=== PATIENT | male | born 1955 | race Caucasian/White ===

== ENCOUNTER 2019-04-15 18:27 | Emergency (ER) | payer SELFPAY | END 2019-04-15 18:56 | disposition left against medical advice (07) | LOC: EMS 18:28 | DX: R21 Rash and other nonspecific skin eruption (principal); Z53.21 Procedure and treatment not carried out due to patient leaving prior to being seen by health care provider ==

== ENCOUNTER 2021-04-10 12:58 | Emergency (ER) | payer SELFPAY ==
[~2021-04-10] VITALS: Ht 177.8 cm; Wt 77.3 kg
[2021-04-10 13:06] VITALS: BP 138/99
== END 2021-04-10 14:15 | disposition left against medical advice (07) ==
LOC: EMS 12:59
DX: R06.02 Shortness of breath (principal); Z53.21 Procedure and treatment not carried out due to patient leaving prior to being seen by health care provider

== ENCOUNTER 2021-04-15 12:39 | Emergency (ER) | payer MEDICAID ==
[~2021-04-15] VITALS: Ht 162.6 cm; Wt 68.0 kg
[2021-04-15 14:23] LABS: EOSINOPHILS % (AUTO) 0.1 % (1.0-6.0); HEMOGLOBIN 13.4 g/dL (13.5-17.5); LYMPHOCYTES # (AUTO) 0.5 K/uL (1.0-4.8); MEAN CORPUSCULAR HEMOGLOBIN 29.9 pg (26.0-34.0); NEUTROPHILS # (AUTO) 8.7 K/uL (1.8-7.7)
[2021-04-15 14:26] LABS: BASOPHILS % (AUTO) 0.5 % (0.0-2.0); HEMATOCRIT 40.7 % (41-53); LYMPHOCYTES % (AUTO) 4.5 % (22.0-44.0); MEAN CORPUSCULAR VOLUME 91 fL (80-100); MONOCYTES % (AUTO) 9.6 % (2.0-9.0); RED BLOOD CELL COUNT(AUTO) 4.48 MIL/uL (4.50-5.90); RED CELL DISTRIBUTION WIDTH 14.6 % (11.5-14.5)
[2021-04-15 14:27] LABS: ANION GAP 11 mmol/L (8-16); CALCIUM, TOTAL 8.2 mg/dL (8.8-10.5); CARBON DIOXIDE 25 mmol/L (22-29); CHLORIDE 107 mmol/L (98-107); CREATININE 0.98 mg/dL (0.60-1.30); GLOMERULAR FILTR. RATE CALC > 60 mL/min (>60); GLUCOSE,RANDOM 119 mg/dL (70-110); SODIUM SERUM 143 mmol/L (136-145); UREA NITROGEN, BLOOD 23 mg/dL (7-18)
[2021-04-15 14:28] LABS: NEUTROPHILS % (AUTO) 85.3 % (40.0-70.0)
[2021-04-15 14:33] LABS: ALANINE AMINOTRANSFERASE 40 U/L (12-78); ALBUMIN 2.5 g/dL (3.4-5.0); ALKALINE PHOSPHATASE 137 U/L (46-116); ASPARTATE AMINOTRANSFERASE 62 U/L (15-37); BILIRUBIN,TOTAL 0.6 mg/dL (0.1-1.0)
[2021-04-15 14:41] LABS: PLATELET COUNT (AUTO) 107 K/uL (150-450); PLATELET MORPHOLOGY COMMENT GIANT PLTS PRESENT
[2021-04-15 15:58] VITALS: BP 131/81
== END 2021-04-15 16:17 | disposition home or self-care (01) ==
LOC: EMS 12:39
DX: R06.00 Dyspnea, unspecified (principal); F17.210 Nicotine dependence, cigarettes, uncomplicated; F15.90 Other stimulant use, unspecified, uncomplicated; Z20.822 Contact with and (suspected) exposure to COVID-19
CPT/HCPCS: 36415; 71045; 80053; 85025; 93005; 99285; U0003

== ENCOUNTER 2021-04-25 17:10 | Inpatient (IN) | payer MEDICAID ==
[~2021-04-25] VITALS: Ht 180.3 cm; Wt 72.8 kg
[2021-04-25] MEDS ORDERED: ALBUTEROL SULFATE HFA 90 MCG/PUFF 8 GM INHALER IH ONE (18:45)
[2021-04-25] MEDS ORDERED: SODIUM CHLORIDE 0.9% 1,000 ML IV ONE (18:45)
[2021-04-25 19:04] LABS: BASOPHILS % (AUTO) 0.8 % (0.0-2.0); EOSINOPHILS % (AUTO) 0.4 % (1.0-6.0); HEMATOCRIT 39.5 % (41-53); LYMPHOCYTES % (AUTO) 10.3 % (22.0-44.0); MEAN CORPUSCULAR HGB CONC 32.9 G/dL (31.0-37.0); MEAN CORPUSCULAR VOLUME 91 fL (80-100); MONOCYTES # (AUTO) 0.8 K/uL (0.1-1.0); MONOCYTES % (AUTO) 8.1 % (2.0-9.0); NEUTROPHILS # (AUTO) 7.6 K/uL (1.8-7.7); NEUTROPHILS % (AUTO) 80.4 % (40.0-70.0); PLATELET COUNT (AUTO) 217 K/uL (150-450); RED BLOOD CELL COUNT(AUTO) 4.33 MIL/uL (4.50-5.90); RED CELL DISTRIBUTION WIDTH 15.2 % (11.5-14.5)
[2021-04-25 19:14] LABS: ANION GAP 7 mmol/L (8-16); CALCIUM, TOTAL 8.8 mg/dL (8.8-10.5); CARBON DIOXIDE 29 mmol/L (22-29); CHLORIDE 109 mmol/L (98-107); CREATININE 1.12 mg/dL (0.60-1.30); GLOMERULAR FILTR. RATE CALC > 60 mL/min (>60); GLUCOSE,RANDOM 106 mg/dL (70-110); POTASSIUM 4.9 mmol/L (3.5-5.1); SODIUM SERUM 145 mmol/L (136-145); UREA NITROGEN, BLOOD 32 mg/dL (7-18)
[2021-04-25 19:38] LABS: ALANINE AMINOTRANSFERASE 96 U/L (12-78); ALKALINE PHOSPHATASE 175 U/L (46-116); ASPARTATE AMINOTRANSFERASE 86 U/L (15-37); BILIRUBIN,TOTAL 0.5 mg/dL (0.1-1.0); CREATINE KINASE, TOTAL ONLY 199 U/L (39-308); TOTAL PROTEIN, SERUM 6.3 g/dL (6.4-8.2)
[2021-04-25 19:39] LABS: COVID AG,FIA SOURCE NASOPHARYNGEAL
[2021-04-25] MEDS ORDERED: CefTRIAXone 1 GM/DEXTROSE 50 ML IV ONE (20:00)
[2021-04-25] MEDS ORDERED: AZITHROMYCIN 500 MG/NS 250 ML IV ONE (20:00)
[2021-04-25 20:40] LABS: B-TYPE NATRIURETIC PEPTIDE 1880 pg/mL (0-100)
[2021-04-25] MEDS ORDERED: ONDANSETRON HCL 4 MG/2 ML VIAL IVP PRN (20:45)
[2021-04-25] MEDS ORDERED: ACETAMINOPHEN 325 MG TABLET PO PRN (20:45)
[2021-04-25] MEDS ORDERED: FUROSEMIDE 20 MG/2 ML VIAL IVP SCH (21:00)
[2021-04-25] MEDS ORDERED: SODIUM CHLORIDE 0.9% 250 ML IV ONE (21:45)
[2021-04-25] MEDS: HEPARIN SODIUM,PORCINE 5,000 UNITS/ML VIAL SQ SCH (22:16)
[2021-04-25 22:33] VITALS: BP 116/91
[2021-04-25] MEDS ORDERED: LORazepam 2 MG/ML VIAL IVP ONE (23:00)
[2021-04-25] MEDS ORDERED: ASPIRIN 81 MG CHEWABLE TABLET PO ONE (23:15)
[2021-04-26 00:47] LABS: PLATELET MORPHOLOGY COMMENT GIANT PLTS PRESENT
[2021-04-26] MEDS ORDERED: PNEUMOCOCCAL VACCINE POLYVALENT 0.5 ML VIAL [PPSV23] IM. ONE (04:30)
[2021-04-26] MEDS ORDERED: INFLUENZA VIRUS VACCINE QVS 2021-22 (6MO+)/PF 60 MCG/0.5 ML SYRINGE IM. ONE (04:30)
[2021-04-26 06:23] VITALS: BP 111/77
[2021-04-26 06:43] LABS: ANION GAP 5 mmol/L (8-16); CALCIUM, TOTAL 8.3 mg/dL (8.8-10.5); CARBON DIOXIDE 27 mmol/L (22-29); CHLORIDE 111 mmol/L (98-107); CREATININE 1.07 mg/dL (0.60-1.30); GLOMERULAR FILTR. RATE CALC > 60 mL/min (>60); GLUCOSE,RANDOM 110 mg/dL (70-110); POTASSIUM 3.9 mmol/L (3.5-5.1); SODIUM SERUM 143 mmol/L (136-145); UREA NITROGEN, BLOOD 29 mg/dL (7-18)
[2021-04-26 07:00] LABS: BASOPHILS % (AUTO) 0.6 % (0.0-2.0); EOSINOPHILS % (AUTO) 0.5 % (1.0-6.0); HEMOGLOBIN 12.8 g/dL (13.5-17.5); LYMPHOCYTES # (AUTO) 1.4 K/uL (1.0-4.8); MEAN CORPUSCULAR HEMOGLOBIN 30.1 pg (26.0-34.0); MEAN CORPUSCULAR HGB CONC 32.8 G/dL (31.0-37.0); MEAN CORPUSCULAR VOLUME 92 fL (80-100); MONOCYTES # (AUTO) 0.8 K/uL (0.1-1.0); MONOCYTES % (AUTO) 9.3 % (2.0-9.0); NEUTROPHILS # (AUTO) 6.1 K/uL (1.8-7.7); NEUTROPHILS % (AUTO) 72.6 % (40.0-70.0); PLATELET COUNT (AUTO) 189 K/uL (150-450); RED BLOOD CELL COUNT(AUTO) 4.25 MIL/uL (4.50-5.90); RED CELL DISTRIBUTION WIDTH 14.6 % (11.5-14.5)
[2021-04-26 07:03] LABS: PLATELET MORPHOLOGY COMMENT GIANT PLTS PRESENT
[2021-04-26 07:36] VITALS: BP 116/77
[2021-04-26] MEDS ORDERED: ASPIRIN 81 MG CHEWABLE TABLET PO SCH (08:00)
[2021-04-26] MEDS: HEPARIN SODIUM,PORCINE 5,000 UNITS/ML VIAL SQ SCH (08:45)
[2021-04-26] MEDS ORDERED: FUROSEMIDE 20 MG/2 ML VIAL IVP SCH (09:00)
== END 2021-04-26 11:30 | disposition left against medical advice (07) | DRG 139 ==
LOC: EMS 17:31 → 5N 21:02
PROVIDERS: ADMIT Internal Medicine; ATTEND Internal Medicine
DX: J18.9 Pneumonia, unspecified organism (principal); I50.21 Acute systolic (congestive) heart failure; J91.8 Pleural effusion in other conditions classified elsewhere; J12.9 Viral pneumonia, unspecified; I42.7 Cardiomyopathy due to drug and external agent; F15.90 Other stimulant use, unspecified, uncomplicated; F12.90 Cannabis use, unspecified, uncomplicated; Z20.822 Contact with and (suspected) exposure to COVID-19; Z53.29 Procedure and treatment not carried out because of patient's decision for other reasons; F17.210 Nicotine dependence, cigarettes, uncomplicated; Z71.6 Tobacco abuse counseling
CPT/HCPCS: 71045; 80048; 80053; 82550; 83735; 83880; 84484; 85025; 93005; 99291; G0480; J0456; J0696; J1644; J1940; J2060; J3535; J7050; 36415-L1; 36415-TC; U0003

== ENCOUNTER 2021-11-05 03:46 | Emergency (ER) | payer MEDICAID ==
[~2021-11-05] VITALS: Ht 170.2 cm; Wt 72.7 kg
[2021-11-05 03:59] VITALS: BP 119/92
[2021-11-05] MEDS ORDERED: KETOROLAC TROMETHAMINE 30 MG/ML VIAL IM ONE (06:30)
== END 2021-11-05 07:11 | disposition home or self-care (01) ==
LOC: EMS 03:48
DX: M62.838 Other muscle spasm (principal); M54.2 Cervicalgia; F17.210 Nicotine dependence, cigarettes, uncomplicated; F12.90 Cannabis use, unspecified, uncomplicated; F15.90 Other stimulant use, unspecified, uncomplicated
CPT/HCPCS: 96372; 99283; J1885

== ENCOUNTER 2021-11-25 16:05 | Emergency (ER) | payer MEDICAID ==
[~2021-11-25] VITALS: Ht 170.2 cm; Wt 62.7 kg
[2021-11-25 16:38] VITALS: BP 104/67
== END 2021-11-25 18:27 | disposition left against medical advice (07) ==
LOC: EMS 16:46
DX: Z53.21 Procedure and treatment not carried out due to patient leaving prior to being seen by health care provider (principal)

== ENCOUNTER 2024-03-09 19:48 | Inpatient (IN) | payer MEDICAID, OTHER ==
[~2024-03-09] VITALS: Ht 177.8 cm; Wt 85.8 kg
[2024-03-09 20:21] LABS: BASOPHILS % (AUTO) 0.3 % (0.0-2.0); EOSINOPHILS % (AUTO) 0.6 % (1.0-6.0); HEMATOCRIT 42.8 % (41-53); HEMOGLOBIN 13.6 g/dL (13.5-17.5); LYMPHOCYTES # (AUTO) 0.9 K/uL (1.0-4.8); LYMPHOCYTES % (AUTO) 13.5 % (22.0-44.0); MEAN CORPUSCULAR HGB CONC 31.7 G/dL (31.0-37.0); MEAN CORPUSCULAR VOLUME 88 fL (80-100); MONOCYTES # (AUTO) 0.6 K/uL (0.1-1.0); MONOCYTES % (AUTO) 9.9 % (2.0-9.0); NEUTROPHILS # (AUTO) 4.8 K/uL (1.8-7.7); NEUTROPHILS % (AUTO) 75.7 % (40.0-70.0); PLATELET COUNT (AUTO) 155 K/uL (150-450); RED BLOOD CELL COUNT(AUTO) 4.85 MIL/uL (4.50-5.90); RED CELL DISTRIBUTION WIDTH 21.7 % (11.5-14.5); WHITE BLOOD COUNT (AUTO) 6.4 K/uL (4.5-11.0)
[2024-03-09 20:35] LABS: ANION GAP 10 mmol/L (8-16); CALCIUM, TOTAL 7.6 mg/dL (8.8-10.5); CARBON DIOXIDE 25 mmol/L (22-29); CHLORIDE 107 mmol/L (98-107); CREATININE 1.71 mg/dL (0.60-1.30); GLOMERULAR FILTR. RATE CALC 40 mL/min (>60); GLUCOSE,RANDOM 72 mg/dL (70-110); POTASSIUM 4.7 mmol/L (3.5-5.1); SODIUM SERUM 142 mmol/L (136-145); UREA NITROGEN, BLOOD 41 mg/dL (7-18)
[2024-03-09 20:36] LABS: TROPONIN I-HIGH SENSITIVITY 22 ng/L (<76)
[2024-03-09 20:41] LABS: B-TYPE NATRIURETIC PEPTIDE 2270 pg/mL (0-100)
[2024-03-09 20:46] LABS: ALANINE AMINOTRANSFERASE 15 U/L (12-78); ALBUMIN 2.6 g/dL (3.4-5.0); ALKALINE PHOSPHATASE 150 U/L (46-116); ASPARTATE AMINOTRANSFERASE 26 U/L (15-37); BILIRUBIN,TOTAL 0.5 mg/dL (0.1-1.0); CREATINE KINASE, TOTAL ONLY 147 U/L (39-308)
[2024-03-09 20:53] LABS: ALCOHOL, BLOOD (SERUM) < 3 mg/dL (0-10)
[2024-03-09] MEDS: FUROSEMIDE 20 MG/2 ML VIAL IVP ONE (21:55)
[2024-03-09] MEDS ORDERED: IPRATROPIUM BROMIDE 0.5 MG/2.5 ML NEB SOLUTION NEB PRN (22:00)
[2024-03-09] MEDS ORDERED: ACETAMINOPHEN 325 MG TABLET PO PRN (22:00)
[2024-03-09] MEDS ORDERED: ONDANSETRON HCL 4 MG/2 ML VIAL IVP PRN (22:00)
[2024-03-09] MEDS ORDERED: ALBUTEROL SULFATE 2.5 MG/0.5 ML NEB SOLUTION NEB PRN (22:00)
[2024-03-09] MEDS: CefTRIAXone 1 GM/DEXTROSE 50 ML IV SCH (22:41)
[2024-03-09 22:50] VITALS: BP 102/82; PULSE 58; RESP 18; TEMP 97.6; O2SAT 96
[2024-03-09] MEDS: AZITHROMYCIN 500 MG/NS 250 ML IV SCH (23:29)
[2024-03-09] MEDS: HEPARIN SODIUM,PORCINE 5,000 UNITS/ML VIAL SQ SCH (23:38)
[2024-03-10] MEDS: MORPHINE SULFATE 4 MG/ML SYRINGE IVP PRN (00:25)
[2024-03-10 00:36] LABS: TROPONIN I-HIGH SENSITIVITY 25 ng/L (<76)
[2024-03-10] MEDS ORDERED: MORPHINE SULFATE 2 MG/ML SYRINGE IVP PRN (01:45)
[2024-03-10 04:16] VITALS: BP 100/51; PULSE 53; RESP 18; TEMP 97.2; O2SAT 95
[2024-03-10 06:46] LABS: CALCIUM, TOTAL 7.5 mg/dL (8.8-10.5); CREATININE 1.71 mg/dL (0.60-1.30); MAGNESIUM 2.6 mg/dL (1.80-2.40); POTASSIUM 4.5 mmol/L (3.5-5.1)
[2024-03-10 06:59] VITALS: BP 150/66; PULSE 58; RESP 18; TEMP 98; O2SAT 97
[2024-03-10 07:05] LABS: BASOPHILS % (AUTO) 0.3 % (0.0-2.0); EOSINOPHILS % (AUTO) 0.4 % (1.0-6.0); HEMATOCRIT 41.8 % (41-53); HEMOGLOBIN 13.3 g/dL (13.5-17.5); LYMPHOCYTES # (AUTO) 0.8 K/uL (1.0-4.8); LYMPHOCYTES % (AUTO) 15.1 % (22.0-44.0); MEAN CORPUSCULAR HEMOGLOBIN 27.8 pg (26.0-34.0); MEAN CORPUSCULAR HGB CONC 31.7 G/dL (31.0-37.0); MEAN CORPUSCULAR VOLUME 88 fL (80-100); MONOCYTES # (AUTO) 0.5 K/uL (0.1-1.0); MONOCYTES % (AUTO) 9.2 % (2.0-9.0); NEUTROPHILS # (AUTO) 3.8 K/uL (1.8-7.7); PLATELET COUNT (AUTO) 146 K/uL (150-450); RED BLOOD CELL COUNT(AUTO) 4.78 MIL/uL (4.50-5.90); RED CELL DISTRIBUTION WIDTH 21.2 % (11.5-14.5); WHITE BLOOD COUNT (AUTO) 5.1 K/uL (4.5-11.0)
[2024-03-10] MEDS: DOCUSATE SODIUM 100 MG CAPSULE PO SCH (08:41)
[2024-03-10] MEDS: MORPHINE SULFATE 2 MG/ML SYRINGE IVP PRN (08:42)
[2024-03-10 11:28] VITALS: BP 120/76; PULSE 57; RESP 18; TEMP 97.2; O2SAT 95
[2024-03-10] MEDS: MIDODRINE HCL 2.5 MG TABLET PO SCH (15:21)
[2024-03-10 17:07] VITALS: BP 144/64; PULSE 52; RESP 18; TEMP 98.4; O2SAT 95
[2024-03-10] MEDS: PIPERACILLIN/TAZO 3.375 GM/D5W 50 ML IV SCH (17:11)
[2024-03-10 20:00] VITALS: BP 113/60; PULSE 71; RESP 21; TEMP 98.2; O2SAT 99
[2024-03-10] MEDS ORDERED: FUROSEMIDE 20 MG/2 ML VIAL IVP SCH (21:00)
[2024-03-10] MEDS: FUROSEMIDE 40 MG/4 ML VIAL IVP SCH (21:17)
[2024-03-11] VITALS: BP 112/64; PULSE 56; RESP 19; TEMP 98; O2SAT 98
[2024-03-11 03:44] VITALS: BP 101/60; PULSE 54; RESP 18; TEMP 97.8; O2SAT 97
[2024-03-11 06:21] LABS: CREATININE,URINE RANDOM 34.4 mg/dL (30.0-125.0)
[2024-03-11 06:22] LABS: APPEARANCE,URINE CLEAR (CLEAR); BILIRUBIN,URINE NEGATIVE (NEGATIVE); COLOR,URINE LIGHT YELLOW (YELLOW); GLUCOSE, URINE (UA) NEGATIVE (NEGATIVE); KETONES,URINE NEGATIVE (NEGATIVE); LEUKOCYTE ESTERASE ,URINE NEGATIVE (NEGATIVE); NITRATE,URINE NEGATIVE (NEGATIVE); OCCULT BLOOD,URINE NEGATIVE (NEGATIVE); PH,URINE 6.5 (5.0-8.0); PH,URINE DRUG SCREEN 6.5 (5.0-8.0); PROTEIN,URINE NEGATIVE (NEGATIVE); SPECIFIC GRAVITIY, URINE 1.012 (1.003-1.030); UROBILINOGEN,URINE <=1.0 mg/dL (<=1.0)
[2024-03-11 06:28] LABS: AMPHET/METH SCREEN,URINE NEGATIVE (NEGATIVE); BARBITURATE SCREEN, URINE NEGATIVE (NEGATIVE); BENZODIAZEPINES SCREEN,URINE NEGATIVE (NEGATIVE); CANNABINOID SCREEN,URINE POSITIVE (NEGATIVE); COCAINE SCREEN,URINE NEGATIVE (NEGATIVE); METHADONE SCREEN, URINE NEGATIVE (NEGATIVE); OPIATE SCREEN,URINE POSITIVE (NEGATIVE); PHENCYCLIDINE SCREEN,URINE NEGATIVE (NEGATIVE)
[2024-03-11 06:32] LABS: ALCOHOL, URINE DRUG SCREEN NEGATIVE (NEGATIVE)
[2024-03-11 06:33] LABS: CALCIUM, TOTAL 7.8 mg/dL (8.8-10.5); CREATININE 1.7 mg/dL (0.60-1.30); POTASSIUM 4.6 mmol/L (3.5-5.1)
[2024-03-11 06:35] LABS: BASOPHILS % (AUTO) 0.4 % (0.0-2.0); EOSINOPHILS % (AUTO) 0.8 % (1.0-6.0); HEMOGLOBIN 14.5 g/dL (13.5-17.5); LYMPHOCYTES % (AUTO) 14.7 % (22.0-44.0); MEAN CORPUSCULAR HEMOGLOBIN 28.3 pg (26.0-34.0); MEAN CORPUSCULAR HGB CONC 32.2 G/dL (31.0-37.0); MEAN CORPUSCULAR VOLUME 88 fL (80-100); MONOCYTES # (AUTO) 0.5 K/uL (0.1-1.0); MONOCYTES % (AUTO) 7.9 % (2.0-9.0); NEUTROPHILS # (AUTO) 5.1 K/uL (1.8-7.7); NEUTROPHILS % (AUTO) 76.2 % (40.0-70.0); PLATELET COUNT (AUTO) 158 K/uL (150-450); RED BLOOD CELL COUNT(AUTO) 5.12 MIL/uL (4.50-5.90); RED CELL DISTRIBUTION WIDTH 21.3 % (11.5-14.5); WHITE BLOOD COUNT (AUTO) 6.6 K/uL (4.5-11.0)
[2024-03-11 07:11] VITALS: BP 111/64; PULSE 83; RESP 18; TEMP 98; O2SAT 97
[2024-03-11 08:12] LABS: BACTERIA,URINE None Seen /HPF (None Seen); RBC,URINE None Seen /HPF (0-2); SQUAMOUS EPITHELIAL CELL,UR None Seen /LPF (None Seen); WBC,URINE None Seen /HPF (0-5)
[2024-03-11] MEDS: METOPROLOL SUCCINATE 25 MG ER TABLET PO SCH (08:55)
[2024-03-11 10:46] LABS: MAGNESIUM 2.5 mg/dL (1.80-2.40)
[2024-03-11 11:17] LABS: TROPONIN I-HIGH SENSITIVITY 22 ng/L (<76)
[2024-03-11 11:19] VITALS: BP 109/69; PULSE 55; RESP 18; TEMP 98.1; O2SAT 94
[2024-03-11] MEDS ORDERED: MIDODRINE HCL 2.5 MG TABLET PO PRN (12:30)
[2024-03-11 15:20] VITALS: BP 103/66; PULSE 87; RESP 18; TEMP 97.8; O2SAT 93
[2024-03-11 19:32] VITALS: BP 138/65; PULSE 65; RESP 17; TEMP 97.9; O2SAT 94
[2024-03-12 00:05] VITALS: BP 113/67; PULSE 55; RESP 18; TEMP 98.3; O2SAT 100
[2024-03-12] MEDS: METOLAZONE 2.5 MG TABLET PO ONE (00:39)
[2024-03-12 03:16] VITALS: BP 100/57; PULSE 63; RESP 18; TEMP 97.8; O2SAT 96
[2024-03-12] MEDS: ATORVASTATIN CALCIUM 20 MG TABLET PO SCH (08:06)
[2024-03-12] MEDS: ASPIRIN 81 MG DR TABLET PO SCH (08:06)
[2024-03-12 08:11] VITALS: BP 107/66; PULSE 55; RESP 19; TEMP 98.2; O2SAT 99
[2024-03-12 08:16] LABS: BASOPHILS % (AUTO) 0.5 % (0.0-2.0); EOSINOPHILS % (AUTO) 0.8 % (1.0-6.0); HEMATOCRIT 42.6 % (41-53); HEMOGLOBIN 13.8 g/dL (13.5-17.5); LYMPHOCYTES # (AUTO) 0.8 K/uL (1.0-4.8); LYMPHOCYTES % (AUTO) 11.8 % (22.0-44.0); MEAN CORPUSCULAR HEMOGLOBIN 28.4 pg (26.0-34.0); MEAN CORPUSCULAR HGB CONC 32.4 G/dL (31.0-37.0); MEAN CORPUSCULAR VOLUME 88 fL (80-100); MONOCYTES # (AUTO) 0.6 K/uL (0.1-1.0); MONOCYTES % (AUTO) 9.2 % (2.0-9.0); NEUTROPHILS # (AUTO) 5.1 K/uL (1.8-7.7); NEUTROPHILS % (AUTO) 77.7 % (40.0-70.0); PLATELET COUNT (AUTO) 144 K/uL (150-450); RED BLOOD CELL COUNT(AUTO) 4.86 MIL/uL (4.50-5.90); RED CELL DISTRIBUTION WIDTH 20.9 % (11.5-14.5); WHITE BLOOD COUNT (AUTO) 6.6 K/uL (4.5-11.0)
[2024-03-12 08:24] LABS: CALCIUM, TOTAL 7.5 mg/dL (8.8-10.5); CREATININE 1.81 mg/dL (0.60-1.30); POTASSIUM 5.1 mmol/L (3.5-5.1)
== END 2024-03-12 10:30 | disposition left against medical advice (07) | DRG 194 ==
LOC: EMS 19:48 → EDH 21:55 → 5N 22:50
PROVIDERS: ADMIT Internal Medicine; ATTEND Internal Medicine
DX: I13.0 Hypertensive heart and chronic kidney disease with heart failure and stage 1 through stage 4 chronic kidney disease, or unspecified chronic kidney disease (principal); J96.01 Acute respiratory failure with hypoxia; J69.0 Pneumonitis due to inhalation of food and vomit; I95.9 Hypotension, unspecified; I42.9 Cardiomyopathy, unspecified; I08.1 Rheumatic disorders of both mitral and tricuspid valves; I50.43 Acute on chronic combined systolic (congestive) and diastolic (congestive) heart failure; I25.10 Atherosclerotic heart disease of native coronary artery without angina pectoris; F15.10 Other stimulant abuse, uncomplicated; F19.10 Other psychoactive substance abuse, uncomplicated; F14.10 Cocaine abuse, uncomplicated; F17.210 Nicotine dependence, cigarettes, uncomplicated; N18.30 Chronic kidney disease, stage 3 unspecified; R10.9 Unspecified abdominal pain; Z53.29 Procedure and treatment not carried out because of patient's decision for other reasons; Z79.899 Other long term (current) drug therapy
CPT/HCPCS: 71045; 80048; 80053; 80307; 81001; 82550; 82570; 83735; 83880; 84300; 84484; 85025; 93005; 93306; 93970; 99285; G0480; J0456; J0696; J1644; J1940; J2270; J2543; 36415-L1; 36415-TC

== ENCOUNTER 2024-03-25 18:05 | Inpatient (IN) | payer OTHER ==
[~2024-03-25] VITALS: Ht 170.2 cm; Wt 74.2 kg
[2024-03-25 19:07] LABS: BASOPHILS % (AUTO) 0.8 % (0.0-2.0); EOSINOPHILS % (AUTO) 0.4 % (1.0-6.0); HEMATOCRIT 47.6 % (41-53); HEMOGLOBIN 15.4 g/dL (13.5-17.5); LYMPHOCYTES # (AUTO) 0.5 K/uL (1.0-4.8); LYMPHOCYTES % (AUTO) 8.7 % (22.0-44.0); MEAN CORPUSCULAR HEMOGLOBIN 28.5 pg (26.0-34.0); MEAN CORPUSCULAR HGB CONC 32.3 G/dL (31.0-37.0); MEAN CORPUSCULAR VOLUME 88 fL (80-100); MONOCYTES # (AUTO) 0.4 K/uL (0.1-1.0); MONOCYTES % (AUTO) 5.9 % (2.0-9.0); NEUTROPHILS # (AUTO) 5.1 K/uL (1.8-7.7); NEUTROPHILS % (AUTO) 84.2 % (40.0-70.0); RED BLOOD CELL COUNT(AUTO) 5.39 MIL/uL (4.50-5.90); RED CELL DISTRIBUTION WIDTH 21.9 % (11.5-14.5); WHITE BLOOD COUNT (AUTO) 6.1 K/uL (4.5-11.0)
[2024-03-25 19:13] LABS: CREATININE 1.9 mg/dL (0.60-1.30); POTASSIUM 4.6 mmol/L (3.5-5.1)
[2024-03-25 19:17] LABS: TROPONIN I-HIGH SENSITIVITY 30 ng/L (<76)
[2024-03-25 19:37] LABS: PLATELET COUNT (AUTO) 122 K/uL (150-450); PLATELET MORPHOLOGY COMMENT LARGE PLTS PRESENT
[2024-03-25] MEDS ORDERED: ONDANSETRON HCL 4 MG/2 ML VIAL IVP PRN (20:00)
[2024-03-25 20:30] LABS: LACTIC ACID 2.2 mmol/L (0.4-2.0)
[2024-03-25 20:40] VITALS: PULSE 54; RESP 20; O2SAT 90
[2024-03-25] MEDS: PredniSONE 20 MG TABLET PO ONE (20:40)
[2024-03-25 20:41] VITALS: PULSE 55; RESP 23; O2SAT 90
[2024-03-25] MEDS: CefTRIAXone 1 GM/DEXTROSE 50 ML IV ONE (20:43)
[2024-03-25] MEDS: AZITHROMYCIN 500 MG/NS 250 ML IV ONE (20:43)
[2024-03-25] MEDS: IPRATROPIUM BROMIDE 0.5 MG/2.5 ML NEB SOLUTION NEB ONE (20:44)
[2024-03-25] MEDS: ALBUTEROL SULFATE 2.5 MG/0.5 ML NEB SOLUTION NEB ONE (20:44)
[2024-03-25] MEDS: FUROSEMIDE 20 MG/2 ML VIAL IVP SCH (20:45)
[2024-03-25 20:53] VITALS: PULSE 57; RESP 20; O2SAT 99
[2024-03-25] MEDS ORDERED: AZITHROMYCIN 500 MG/NS 250 ML IV ONE (22:00)
[2024-03-25] MEDS ORDERED: CefTRIAXone 1 GM/DEXTROSE 50 ML IV ONE (22:00)
[2024-03-25] MEDS ORDERED: SODIUM CHLORIDE 0.9% 1,500 ML IV ONE (22:00)
[2024-03-25 22:36] VITALS: BP 110/80; PULSE 64; RESP 20; TEMP 97.7; O2SAT 98
[2024-03-26 00:03] LABS: TROPONIN I-HIGH SENSITIVITY 27 ng/L (<76)
[2024-03-26] MEDS: HEPARIN SODIUM,PORCINE 5,000 UNITS/ML VIAL SQ SCH (00:54)
[2024-03-26] MEDS: ACETAMINOPHEN 325 MG TABLET PO PRN (00:55)
[2024-03-26 03:07] LABS: APPEARANCE,URINE CLEAR (CLEAR); BILIRUBIN,URINE NEGATIVE (NEGATIVE); COLOR,URINE YELLOW (YELLOW); GLUCOSE, URINE (UA) NEGATIVE (NEGATIVE); KETONES,URINE NEGATIVE (NEGATIVE); LEUKOCYTE ESTERASE ,URINE NEGATIVE (NEGATIVE); NITRATE,URINE NEGATIVE (NEGATIVE); OCCULT BLOOD,URINE NEGATIVE (NEGATIVE); PROTEIN,URINE 30-70 mg/dL (NEGATIVE); SPECIFIC GRAVITIY, URINE 1.024 (1.003-1.030); UROBILINOGEN,URINE <=1.0 mg/dL (<=1.0)
[2024-03-26 03:14] LABS: ALCOHOL, URINE DRUG SCREEN NEGATIVE (NEGATIVE); AMPHET/METH SCREEN,URINE POSITIVE (NEGATIVE); BARBITURATE SCREEN, URINE NEGATIVE (NEGATIVE); BENZODIAZEPINES SCREEN,URINE NEGATIVE (NEGATIVE); CANNABINOID SCREEN,URINE POSITIVE (NEGATIVE); COCAINE SCREEN,URINE NEGATIVE (NEGATIVE); METHADONE SCREEN, URINE NEGATIVE (NEGATIVE); OPIATE SCREEN,URINE NEGATIVE (NEGATIVE); PHENCYCLIDINE SCREEN,URINE NEGATIVE (NEGATIVE)
[2024-03-26] MEDS ORDERED: INFLUENZA VIRUS VACCINE TVS (6MO+) 2024-25/PF 45 MCG/0.5 ML SYRINGE IM. ONE (03:15)
[2024-03-26 04:39] VITALS: BP 108/59; PULSE 56; RESP 19; TEMP 98.2; O2SAT 96
[2024-03-26 07:11] VITALS: BP 122/74; PULSE 63; RESP 18; TEMP 97.8; O2SAT 95
[2024-03-26 07:16] LABS: CALCIUM, TOTAL 7.6 mg/dL (8.8-10.5); CREATININE 1.71 mg/dL (0.60-1.30); MAGNESIUM 2.7 mg/dL (1.80-2.40); POTASSIUM 4.7 mmol/L (3.5-5.1)
[2024-03-26 07:23] LABS: BASOPHILS % (AUTO) 0.2 % (0.0-2.0); EOSINOPHILS % (AUTO) 0 % (1.0-6.0); HEMATOCRIT 44.2 % (41-53); HEMOGLOBIN 14.4 g/dL (13.5-17.5); LYMPHOCYTES # (AUTO) 0.3 K/uL (1.0-4.8); LYMPHOCYTES % (AUTO) 5.2 % (22.0-44.0); MEAN CORPUSCULAR HEMOGLOBIN 28.6 pg (26.0-34.0); MEAN CORPUSCULAR HGB CONC 32.6 G/dL (31.0-37.0); MEAN CORPUSCULAR VOLUME 88 fL (80-100); MONOCYTES # (AUTO) 0.1 K/uL (0.1-1.0); MONOCYTES % (AUTO) 1.4 % (2.0-9.0); NEUTROPHILS # (AUTO) 5.9 K/uL (1.8-7.7); PLATELET COUNT (AUTO) 119 K/uL (150-450); RED BLOOD CELL COUNT(AUTO) 5.05 MIL/uL (4.50-5.90); RED CELL DISTRIBUTION WIDTH 21.5 % (11.5-14.5); WHITE BLOOD COUNT (AUTO) 6.3 K/uL (4.5-11.0)
[2024-03-26 07:32] LABS: NEUTROPHILS % (AUTO) 93.2 % (40.0-70.0)
[2024-03-26] MEDS ORDERED: CefTRIAXone SODIUM 2 GM in DEXTROSE 5%-WATER 50 ML IV SCH (09:00)
[2024-03-26 09:11] LABS: PLATELET MORPHOLOGY COMMENT LARGE PLTS PRESENT
[2024-03-26 13:05] VITALS: BP 108/81; PULSE 71; RESP 19; TEMP 98.1; O2SAT 97
[2024-03-26 16:29] VITALS: BP 115/85; PULSE 73; RESP 20; TEMP 97.9; O2SAT 100
[2024-03-26] MEDS: FUROSEMIDE 20 MG/2 ML VIAL IVP SCH (17:23)
[2024-03-26 19:16] VITALS: BP 113/82; PULSE 71; RESP 20; TEMP 97.9; O2SAT 95
[2024-03-27] VITALS (10 sets, daily range): BP systolic 100–116; BP diastolic 53–77; PULSE 56–77; RESP 18–19; TEMP 97.4–98.3; O2SAT 88–100
[2024-03-27 07:17] LABS: BASOPHILS % (AUTO) 0.3 % (0.0-2.0); EOSINOPHILS % (AUTO) 0.2 % (1.0-6.0); HEMATOCRIT 40.6 % (41-53); HEMOGLOBIN 13.3 g/dL (13.5-17.5); LYMPHOCYTES # (AUTO) 0.8 K/uL (1.0-4.8); LYMPHOCYTES % (AUTO) 8.5 % (22.0-44.0); MEAN CORPUSCULAR HEMOGLOBIN 28.6 pg (26.0-34.0); MEAN CORPUSCULAR HGB CONC 32.8 G/dL (31.0-37.0); MEAN CORPUSCULAR VOLUME 87 fL (80-100); MONOCYTES # (AUTO) 0.6 K/uL (0.1-1.0); MONOCYTES % (AUTO) 6.6 % (2.0-9.0); NEUTROPHILS # (AUTO) 7.5 K/uL (1.8-7.7); NEUTROPHILS % (AUTO) 84.4 % (40.0-70.0); PLATELET COUNT (AUTO) 122 K/uL (150-450); RED BLOOD CELL COUNT(AUTO) 4.65 MIL/uL (4.50-5.90); RED CELL DISTRIBUTION WIDTH 21.3 % (11.5-14.5); WHITE BLOOD COUNT (AUTO) 8.9 K/uL (4.5-11.0)
[2024-03-27 07:21] LABS: CALCIUM, TOTAL 7.5 mg/dL (8.8-10.5); CREATININE 1.8 mg/dL (0.60-1.30); MAGNESIUM 2.5 mg/dL (1.80-2.40); POTASSIUM 4.4 mmol/L (3.5-5.1)
[2024-03-27] MEDS: METOPROLOL SUCCINATE 25 MG ER TABLET PO SCH (11:15)
[2024-03-27] MEDS ORDERED: SODIUM CHLORIDE 0.9% 250 ML IV ONE (12:25)
[2024-03-27] MEDS: CefTRIAXone 1 GM/DEXTROSE 50 ML IV SCH (12:42)
[2024-03-27] MEDS: ATORVASTATIN CALCIUM 40 MG TABLET PO ONE (12:44)
[2024-03-27] MEDS: SPIRONOLACTONE 25 MG TABLET PO SCH (21:10)
[2024-03-28 00:50] VITALS: BP 103/62; PULSE 61; RESP 18; TEMP 97.9; O2SAT 95
[2024-03-28 03:33] VITALS: BP 106/68; PULSE 55; RESP 18; TEMP 97.7; O2SAT 96
[2024-03-28 07:15] LABS: CALCIUM, TOTAL 7.5 mg/dL (8.8-10.5); CREATININE 1.93 mg/dL (0.60-1.30); MAGNESIUM 2.4 mg/dL (1.80-2.40); POTASSIUM 4.7 mmol/L (3.5-5.1)
[2024-03-28 07:20] LABS: BASOPHILS % (AUTO) 0.5 % (0.0-2.0); EOSINOPHILS % (AUTO) 1.6 % (1.0-6.0); HEMATOCRIT 40.5 % (41-53); HEMOGLOBIN 13.3 g/dL (13.5-17.5); LYMPHOCYTES # (AUTO) 0.7 K/uL (1.0-4.8); MEAN CORPUSCULAR HEMOGLOBIN 28.7 pg (26.0-34.0); MEAN CORPUSCULAR HGB CONC 32.8 G/dL (31.0-37.0); MEAN CORPUSCULAR VOLUME 88 fL (80-100); MONOCYTES # (AUTO) 0.4 K/uL (0.1-1.0); MONOCYTES % (AUTO) 7.4 % (2.0-9.0); NEUTROPHILS # (AUTO) 3.9 K/uL (1.8-7.7); NEUTROPHILS % (AUTO) 77.5 % (40.0-70.0); PLATELET COUNT (AUTO) 121 K/uL (150-450); RED BLOOD CELL COUNT(AUTO) 4.62 MIL/uL (4.50-5.90); RED CELL DISTRIBUTION WIDTH 21.9 % (11.5-14.5)
[2024-03-28 07:27] VITALS: BP 110/77; PULSE 65; RESP 18; TEMP 97.8; O2SAT 100
[2024-03-28] MEDS: LISINOPRIL 5 MG TABLET PO SCH (09:01)
[2024-03-28 12:06] VITALS: BP 114/58; PULSE 66; RESP 18; TEMP 98.1; O2SAT 92
[2024-03-28 15:37] LABS: ABG BASE EXCESS -4.4 mmol/L (-2.0-3.0); ABG CARBOXYHEMOGLOBIN 0.5 % (0.5-1.5); ABG HCO3 21.7 mmol/L (21.0-28.0); ABG METHEMOGLOBIN 0.3 % (0.0-1.5); ABG OXYGEN CONTENT 18.4 mL/dL (15.0-23.0); ABG OXYHEMOGLOBIN 93.2 % (94.0-98.0); ABG PCO2 30 mmHg (32.0-48.0); ABG PH 7.433 (7.350-7.450); PO2, ARTERIAL BG 71.5 mmHg (83.0-108.0); SOURCE, BLOOD GAS ARTERIAL; TEMPERATURE, FAHRENHEIT, BG 98.6 FAHREN (96.0-98.6)
[2024-03-28 15:38] LABS: ABG A-A DIFF O2 41.8 mmHg (10-20.0); O2 DEVICE,BLOOD GAS ROOM AIR (ROOM AIR); SITE, BLOOD GAS RT BRACHIAL
[2024-03-28 16:13] VITALS: BP 113/75; PULSE 53; RESP 18; TEMP 98.1; O2SAT 94
[2024-03-28 19:24] VITALS: BP 108/76; PULSE 55; RESP 18; TEMP 98.5; O2SAT 96
[2024-03-28] MEDS: ATORVASTATIN CALCIUM 40 MG TABLET PO SCH (21:22)
[2024-03-29] VITALS (7 sets, daily range): BP systolic 95–103; BP diastolic 59–76; PULSE 51–71; RESP 18–19; TEMP 97.9–98.2; O2SAT 91–98
[2024-03-29 06:28] LABS: BASOPHILS % (AUTO) 0.5 % (0.0-2.0); HEMATOCRIT 41.6 % (41-53); HEMOGLOBIN 13.6 g/dL (13.5-17.5); LYMPHOCYTES # (AUTO) 0.5 K/uL (1.0-4.8); LYMPHOCYTES % (AUTO) 9.8 % (22.0-44.0); MEAN CORPUSCULAR HEMOGLOBIN 28.5 pg (26.0-34.0); MEAN CORPUSCULAR HGB CONC 32.7 G/dL (31.0-37.0); MEAN CORPUSCULAR VOLUME 87 fL (80-100); MONOCYTES # (AUTO) 0.4 K/uL (0.1-1.0); MONOCYTES % (AUTO) 7.9 % (2.0-9.0); NEUTROPHILS # (AUTO) 4.3 K/uL (1.8-7.7); NEUTROPHILS % (AUTO) 80.8 % (40.0-70.0); PLATELET COUNT (AUTO) 118 K/uL (150-450); RED BLOOD CELL COUNT(AUTO) 4.79 MIL/uL (4.50-5.90); WHITE BLOOD COUNT (AUTO) 5.3 K/uL (4.5-11.0)
[2024-03-29 06:37] LABS: CALCIUM, TOTAL 7.5 mg/dL (8.8-10.5); CREATININE 1.76 mg/dL (0.60-1.30); POTASSIUM 4.1 mmol/L (3.5-5.1)
[2024-03-29 07:58] LABS: PLATELET MORPHOLOGY COMMENT GIANT PLTS PRESENT
[2024-03-29 08:24] LABS: TROPONIN I-HIGH SENSITIVITY 19 ng/L (<76)
[2024-03-30 00:07] VITALS: BP 103/71; PULSE 61; RESP 18; TEMP 97.6; O2SAT 97
[2024-03-30 00:14] VITALS: BP 79/45; PULSE 80; RESP 20; O2SAT 96
[2024-03-30 00:16] VITALS: BP 78/42; PULSE 80; RESP 20; O2SAT 95
[2024-03-30 04:00] VITALS: BP 105/63; PULSE 59; RESP 18; TEMP 97.5; O2SAT 95
[2024-03-30 07:57] VITALS: BP 96/66; PULSE 67; RESP 16; TEMP 97.4; O2SAT 98
[2024-03-30] MEDS: FUROSEMIDE 40 MG TABLET PO SCH (09:07)
[2024-03-30] MEDS: SPIRONOLACTONE 25 MG TABLET PO SCH (09:07)
[2024-03-30 09:14] LABS: BASOPHILS % (AUTO) 0.5 % (0.0-2.0); EOSINOPHILS % (AUTO) 1.1 % (1.0-6.0); HEMATOCRIT 46.5 % (41-53); HEMOGLOBIN 14.7 g/dL (13.5-17.5); LYMPHOCYTES # (AUTO) 0.5 K/uL (1.0-4.8); LYMPHOCYTES % (AUTO) 9.4 % (22.0-44.0); MEAN CORPUSCULAR HEMOGLOBIN 28.1 pg (26.0-34.0); MEAN CORPUSCULAR HGB CONC 31.6 G/dL (31.0-37.0); MEAN CORPUSCULAR VOLUME 89 fL (80-100); MONOCYTES # (AUTO) 0.3 K/uL (0.1-1.0); NEUTROPHILS # (AUTO) 4.4 K/uL (1.8-7.7); PLATELET COUNT (AUTO) 123 K/uL (150-450); RED BLOOD CELL COUNT(AUTO) 5.24 MIL/uL (4.50-5.90); WHITE BLOOD COUNT (AUTO) 5.3 K/uL (4.5-11.0)
[2024-03-30 09:22] LABS: CALCIUM, TOTAL 8.4 mg/dL (8.8-10.5); CREATININE 1.92 mg/dL (0.60-1.30); POTASSIUM 4.5 mmol/L (3.5-5.1)
[2024-03-30 09:34] LABS: PLATELET MORPHOLOGY COMMENT GIANT PLTS PRESENT
[2024-03-30] MEDS ORDERED: METO25XL PO (10:17)
[2024-03-30] MEDS ORDERED: ATOR40TA71 PO (10:17)
[2024-03-30] MEDS ORDERED: SPIR-37 PO (10:17)
[2024-03-30] MEDS ORDERED: LISI-892 PO (10:17)
[2024-03-30] MEDS ORDERED: FURO40TA5 PO (10:17)
== END 2024-03-30 15:00 | disposition home or self-care (01) | DRG 133 ==
LOC: EMS 18:05 → EDH 19:58 → 5S 22:07
PROVIDERS: ADMIT Internal Medicine; ATTEND Internal Medicine
DX: J96.01 Acute respiratory failure with hypoxia (principal); N17.0 Acute kidney failure with tubular necrosis; I50.43 Acute on chronic combined systolic (congestive) and diastolic (congestive) heart failure; J15.69 Pneumonia due to other Gram-negative bacteria; E87.20 Acidosis, unspecified; D69.6 Thrombocytopenia, unspecified; J18.9 Pneumonia, unspecified organism; Z91.199 Patient's noncompliance with other medical treatment and regimen due to unspecified reason; F15.10 Other stimulant abuse, uncomplicated; F17.200 Nicotine dependence, unspecified, uncomplicated; I44.7 Left bundle-branch block, unspecified; I08.1 Rheumatic disorders of both mitral and tricuspid valves; N18.30 Chronic kidney disease, stage 3 unspecified; Z79.899 Other long term (current) drug therapy
CPT/HCPCS: 36600; 71045; 80048; 80307; 81003; 82550; 82805; 83605; 83735; 83880; 84484; 85025; 85379; 93005; 94060; 94640; 99285; J0456; J0696; J1644; J1940; J7050; J7060; 36415-L1; 36415-TC; J7613